=== PATIENT | male | born 1995 | race Caucasian/White ===

== ENCOUNTER 2018-12-04 13:35 | Emergency (ER) | payer BC ==
[2018-12-04 13:39] VITALS: BP 136/89
--- NOTE | 2018-12-04 15:24 | EDPHY ---
H & P Time Seen by Provider: 12/04/18 14:34 HPI/ROS: Chief complaint: Chin laceration History of present illness: 23-year-old male presents for a chin laceration. He was playing lacrosse just prior to arrival when a stick struck his chin. Minimal pain. Minimal bleeding. States he is still opening and closing the mouth well. No report of trauma inside the mouth. He has a normal bite. No report of trauma to the rest of the face or body. Immunizations up-to-date. Smoking Status: Never smoked Physical Exam: General: Alert, nontoxic. Skin: 1 cm laceration to the left anterior chin. ENT: No bleeding in the mouth. Musculoskeletal: The mandible is nontender. He is opening closing it well with good bite. The rest the face is nontender. The head and neck is nontender. Constitutional: Initial Vital Signs Temperature (C) 36.9 C 12/04/18 13:37 Heart Rate 94 12/04/18 13:37 Respiratory Rate 16 12/04/18 13:37 Blood Pressure 136/89 H 12/04/18 13:37 O2 Sat (%) 95 12/04/18 13:37 O2 Delivery Mode Room Air Allergies/Adverse Reactions: No Known Allergies Allergy (Unverified 12/04/18 13:39) Home Medications: Medication Instructions Recorded NK [No Known Home Meds] 12/04/18 MDM/Departure - MDM Procedures: Procedure: Laceration repair. Verbal consent was obtained from the patient. The 1 cm laceration on the chin was anesthetized in the usual fashion. The wound was irrigated, draped and explored to its base with a gloved finger. There were no deep structures involved. No tendon injury was identified. The wound was repaired with 5 0 Prolene, 4 simple interrupted sutures. The wound repair was simple. The procedure was performed by myself. ED Course/Re-evaluation: Patient seen under the supervision of my secondary supervising physician Dr. Ava Nichole. Patient presents to the emergency department for a left chin laceration. By history and physical exam no evidence of further trauma. Laceration is repaired. Home care is discussed. Return precautions are given. Patient voiced understanding and agreement plan. - Depart Disposition: Home, Routine, Self-Care Clinical Impression: Chin laceration Qualifiers: Encounter type: initial encounter Qualified Code(s): S01.81XA - Laceration without foreign body of other part of head, initial encounter Condition: Good Instructions: Care For Your Stitches (ED), Laceration (ED), Acute Wounds (ED) Additional Instructions: Follow-up with a primary care doctor for continued evaluation and care Stitches to be removed in 7 days If symptoms worsen or new symptoms develop return to the emergency room for recheck Referrals: NONE *PRIMARY CARE P,. [Primary Care Provider] - As per Instructions Raul Erickson MD [[facility] [place] Primary Care Provider] - As per Instructions
== END 2018-12-04 15:50 | disposition home or self-care (01) ==
PROC: 0HQ1XZZ Repair Face Skin, External Approach (ICD-10-PCS; principal; 2018-12-04)
DX: S01.81XA Laceration without foreign body of other part of head, initial encounter (principal); W21.211A Struck by field hockey stick, initial encounter; Y93.65 Activity, lacrosse and field hockey; Y92.838 Other recreation area as the place of occurrence of the external cause